=== PATIENT | female | born 1965 | race Caucasian/White ===

== ENCOUNTER 2025-03-24 01:45 | Day surgery (SDC) | payer OTHER, SELFPAY ==
[2025-03-10 11:48] VITALS: BMI 24.0
--- OUTSIDE RECORDS SUMMARY | 2025-03-24 01:48 | XMS_ITS | Clinical Summary ---
Author Organization [facility] Address [address] [place] [address] Care Team Providers Care Director Oracle Name Role Phone Robb Mcdonnell MD Primary Care Provider +1- [phone] Allergies No known active allergies Medications mesalamine EC 1.2 g Tab EC tablet Take 2 tablets (2.4 g total) by mouth daily. with food Active balsalazide (COLAZAL) 750 MG capsule Take 3 capsules (2,250 mg total) by mouth 3 (three) times daily. Active Vitamin D3 (CHOLECALCIFERO L) 50 mcg tablet Take 1 tablet (50 mcg total) by mouth daily. Active Vitamin E 200 UNITS capsule Take 1 tablet by mouth daily. Active biotin 300 MCG Tab Take 1 tablet (300 mcg total) by mouth daily. Active probiotic (FLORAJEN3) Cap capsule Take 1 capsule by mouth 3 (three) times daily with meals. Active Adapalene 0.3 % Gel apply TO THE affected AREA AT BEDTIME (TO THE face) 07/25/2022 Active hydrocortisone 2.5 % cream APPLY to the affected area(s) TWICE DAILY NEEDED 03/30/2022 Active doxycycline hyclate (VIBRA-TABS) 100 MG tablet Take 1 tablet (100 mg total) by mouth daily. with food. 07/12/2022 Active ustekinumab (STELARA) 45 MG/0.5ML injection Inject 0.5 mLs (45 mg total) into the skin Once every eight weeks. Active Social History Tobacco Use Types Packs/Day Years Used Date Smoking Tobacco: Former Cigarettes Q uit: 2002 Smokeless Tobacco: Never Tobacco Cessation:Counseling Given: Not Answered Alcohol Use Standard Drinks/Week Comments Yes 14 (1 standard drink = 0.6 oz pu re alcohol) 2/day Comments No Sex and Gender Information Value Date Recorded Sex Assigned at Not on file Legal Sex Female 7:13 PM CDT Gender Identity Not on file Sexual Orientation Not on file Last Filed Vital Signs Vital Sign Reading Time Taken Comments Blood Pressure 141/91 12/03/2023 2:17 PM CDT Pulse 82 12/03/2023 2:17 PM CDT Temperature 36.5 C (97.7 F) 12/03/2023 12:37 PM CDT Respiratory Rate 20 12/03/2023 2:00 PM CDT Oxygen Saturation 97% 12/03/2023 2:17 PM CDT Inhaled Oxygen Concentration - - Weight 79.4 kg (175 lb) 11/23/2023 12:39 PM CDT Height 180.3 cm (5' 11) 11/23/2023 12:39 PM CDT Body Mass Index 24.41 11/23/2023 12:39 PM CDT Plan of Treatment Health Maintenance Due Date Last Done Comments Cervical Cancer Screening Pap Smear (Age 30 to 64) Every 3 Years 1966 Annual Physical 1969 DTaP, Tdap and Td Vaccines (1 - Tdap) 1985 Hepatitis B Vaccines (1 of 3 - 19+ 3-dose series) 1985 Cervical Cancer Screening Pap with HPV Testing (Age 30 to 64) Every 5 Years 1996 Cervical Cancer Screening with HPV 1996 Pneumococcal Vaccine: 50+ Years (1 of 1 - PCV) 2016 PHQ-2 (Physician [place]) 07/02/2024 COVID-19 Vaccine (1 - season) 2025 Mammogram Screening 06/15/2025 06/15/2023 Colorectal Cancer Screening Colonoscopy (10 Years) 09/25/2032 09/25/2022, 09/25/2022, 09/21/2020, Additional history exists Zoster Vaccines Completed 09/13/2019, 05/18/2019 Hepatitis C Completed 09/25/2022 Meningococcal B Vaccine Aged Out No l onger eligible based on patient's age to complete this topic Meningococcal Vaccine Aged Out No jane erica eligible based on patient's age to complete this topic RSV Immunizations Under 20 Months Aged Out No longer eligible based on patient's age to complete this topic Procedures Procedure Name Priority Date/Time Associated Diagnosis Comments HC EIA QL HEPATITIS ABC B AG Routine 09/25/2022 8:21 AM CDT COLONOSCOPY Routine 09/25/2022 7:06 AM CDT from Last 3 Months or Most Recently Relevant to Health Maintenance Results * (ABNORMAL) HEPATITIS A,B,& C (09/25/2022 8:21 AM CDT) HEPATITIS B SURFACE AG NON-REACTIVE NON-REACT LIANNE 09/25/2022 9:[address] [facility] HEP B CORE TOTAL AB NON-REACTIVE NON-REACT LIANNE 09/25/2022 9:[address] [facility] HEP B SURFACE AB REACTIVE 09/25/2022 9:[address] [facility] HAV IGM REACTIVE(A) NON-REACT LIANNE 09/25/2022 11:[address] [facility] HEPATITIS C AB NON-REACTIVE NON-REACT LIANNE 09/25/2022 9:[address] [facility] 09/25/2022 8:21 AM CDT us Ady Mosley MD LABORATORY Final Resul t [facility] [address] [place] [address], [place] [phone] * Colonoscopy (09/25/2022 7:06 AM CDT) Narrative Ady Mosley MD - 09/25/2022 7:06 AM CDT Ady Mosley MD 09/25/2022 7:55 AM ADY MOSLEY MD, FACG, FACP COLONOSCOPY 09/25/2022 INDICATION: History of Ulcerative Colitis. POST-OP: One polyp removed. Moderately severe proctitis-biopsied. Surveillance biopsies done. SEDATION: ASA 2, MP 2. Moderate sedation given by Lu Quevedo RN &supervised by me. Versed 8 mg, Fentanyl 150 mcg IV given. Please see nurses notes for details. PREP: Good. With the patient in the left lateral decubitus position, the Olympus [id number] colonoscope was introduced into the rectum and advanced easily to the Terminal Ileum. Careful inspection of the mucosa was made upon insertion and withdrawal of the endoscope. FINDINGS: Terminal ileum: distal 5 cm normal. Ascending, Transverse, Descending, Sigmoid colon: normal. Cecum: 1.5 cm sessile polyp removed with snare polypectomy without bleed. (Jar 1) Rectum including retroflexion: 0-10 cm with moderately severe proctitis with erythema, edema, ulceration, friability, granularity and exudate. Biopsies Jar 4. Surveillance biopsies taken in 4Q fashion every 10 cm on withdrawal to evaluate for dysplasia. (Right colon Jar 2, Left colon Jar 3.) No masses, AVMs or diverticulosis seen. No complications, blood loss or implants. ASSESSMENT AND PLAN: History of Ulcerative Colitis: - Asymptomatic on Balsalazide 3 tab po BID - Surveillance colonoscopy 09/25/2022 with one colon polyp removed and moderately severe proctitis - Follow-up biopsies - While patient is asymptomatic there is still significant disease - Will need a biological; likely Stelara - Flex-Sig 6-8 months after start of biological - Will get Quaniferon Gold and Hepatitis screen today - With colon polyp and colitis will need repeat colonoscopy in two years Thank you for allowing me to care for your patient. She will follow-up with me in one month. Ady Mosley M.D. Cc: Dr. Mcdonnell Ady Mosley MD GI PROCEDURE ORDERABLES Fin al Result from Last 3 Months or Most Recently Relevant to Health Maintenance Insurance [facility] Care Teams Director Oracle Relationship Specialty Start Date End Date Robb Mcdonnell MD [address] [place] [address] [place] [address] PCP - General 01/26/17
--- OUTSIDE RECORDS SUMMARY | 2025-03-24 01:48 | XMS_ITS | Clinical Summary ---
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 Gender Identity Not on file Sexual Orientation Not on file Plan of Treatment Health Maintenance Due Date Last Done Comments DTAP/TDAP/TD VACCINES (1 - Tdap) 1985 HEPATITIS B VACCINES (1 of 3 - 19+ 3-dose series) 1985 HPV/Cotest (21-29) 10/30/1987 CERVICAL CANCER SCREENING 1996 HPV/Cotest (30-65) 1996 PAP SMEAR 1996 FIT-DNA Q 3 years 10/30/2011 FIT/FOBT Q 1 year 10/30/2011 Flex Sig/CT Colonography Q 5 years 10/30/2011 ZOSTER VACCINE (1 of 2) 2016 BREAST CANCER SCREENING 06/15/2024 06/15/20 23, 06/15/2023, 06/14/2022, Additional history exists INFLUENZA VACCINE (#1) 2025 COLORECTAL SCREENING 09/25/2032 09/25/2022, 09/26/19 Colorectal Cancer Screening 09/25/2032 Insurance [facility] INDIVIDUAL EXCHANGE [id number]
--- OUTSIDE RECORDS SUMMARY | 2025-03-24 01:48 | XMS_ITS | Encounter Summary ---
Author Organization [facility] Address [address] [place] [address] Care Team Providers Care Meat Soaker Name Role Phone Robb Mcdonnell MD Primary Care Provider +1- [phone] Encounter Details Date Type Department Care Team (Late st Contact Info) Description 02/15/2020 Prep for Procedure [facility] [place] [address] Ady Mosley MD [address] [address] Social History Tobacco Use Types Packs/Day Years Used Date Smoking Tobacco: Never Assessed Comments Unknown Sex and Gender Information Value Date Recorded Sex Assigned at Not on file Legal Sex Female 7:13 PM CDT Gender Identity Not on file Sexual Orientation Not on file documented as of this encounter Plan of Treatment Not on file documented as of this encounter Visit Diagnoses Diagnosis Colitis- Primary Other and unspecified noninfectious gastroenteritis and colitis documented in this encounter Additional Health Concerns Infection Onset Date Last Indicated Resolved Time COVID-19 Rule Out 09/18/2020 09/18/2020 09/19/2020 11:51 AM CDT documented as of this encounter Care Teams Meat Soaker Relationship Specialty Start Date End Date Robb Mcdonnell MD [address] [place] [address] [place] [id number] PCP - General 01/26/17 documented as of this encounter
--- OUTSIDE RECORDS SUMMARY | 2025-03-24 01:48 | XMS_ITS | Clinical Summary ---
Author Organization [facility] Address [address] [place] [address] Care Team Providers Care Real Estate Investment Analyst Name Role Phone Robb Mcdonnell MD Primary Care Provider Source Comments [facility],non-owned Affiliates and Associated Physician Practices is amultiple site organization consisting of ambulatory clinics and hospital sitesin [place], [place], [place] and [place]. This disclosure is being madepursuant to the Care Everywhere program and may not contain all information available regarding this patient. Last updated 18.[facility] Allergies No known active allergies Medications * Be aware that medications may not be up to date on this document. Alwaysverify current medications with the patient. PredniSONE 10 MG KIT Take 10 mg by mouth daily. Take 3 pills by mouth daily. 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 Gender Identity Not on file Sexual Orientation Not on file Last Filed Vital Signs Vital Sign Reading Time Taken Comments Blood Pressure 160/96 09/29/2009 9:06 AM CDT Pulse 76 09/29/2009 9:06 AM CDT Temperature 35.5 C (95.9 F) 09/29/2009 9:06 AM CDT Respiratory Rate - - Oxygen Saturation 99% 09/29/2009 9:06 AM CDT Inhaled Oxygen Concentration - - Weight 78 kg (172 lb) 03/08/2012 5:35 PM CDT Height 180.3 cm (5' 11) 03/08/2012 5:35 PM CDT Body Mass Index 23.99 03/08/2012 5:35 PM CDT Plan of Treatment Health Maintenance Due Date Last Done Comments COLOGUARD (AGES 45-75) - COL ON CA SCREENING 1966 COLON MONITORING 1966 COLONOSCOPY - COLON CA SCREENING 1966 CT COLONOGRAPHY - COLON CA SCREENING 1966 Colorectal Cancer Screening 1966 FIT - COLON CA SCREENING 1966 FLEX SIG - COLON CA SCREENING 1966 LIPID TESTING 1966 MAMMOGRAM 1966 HIV SCREENING 1981 HEPATITIS C SCREENING 10/24/1984 DTAP/TDAP/TD VACCINES (1 - Tdap) 1985 HEPATITIS B VACCINE (1 of 3 - 19+ 3-dose series) 1985 PNEUMOCOCCAL VACCINE 50+ (1 of 1 - PCV) 2016 ZOSTER VACCINE (1 of 2) 2016 DEPRESSION SCREENING 07/02/2024 COVID-19 VACCINE (1 - 2023-2 5 season) 2025 INFLUENZA VACCINE (#1) 2025 HIB VACCINE Aged Out No longer eligi ble based on patient's age to complete this topic HPV VACCINE Aged Out No longer eligi ble based on patient's age to complete this topic MENINGOCOCCAL (Group B) VACC INE SHARED DECISION-MAKING Aged Out No longer eligibl e based on patient's age to complete this topic MENINGOCOCCAL GROUPS A/C/Y/W VACCINE Aged Out No longer eligible b ased on patient's age to complete this topic Care Teams Real Estate Investment Analyst Relationship Specialty Start Date End Date Robb Mcdonnell MD [address] [place] [address] [place] [id number] PCP - General 03/08/12
--- OUTSIDE RECORDS SUMMARY | 2025-03-24 01:48 | XMS_ITS | Clinical Summary ---
Author Organization [facility] Address [address] [place] [address] Care Team Providers Care Production Planner Scheduler Name Role Phone Robb Mcdonnell MD Primary Care Provider +1 -[phone] Allergies No known active allergies Medications ustekinumab (STELARA) injection Inject 1 mL (90 mg total) under the skin every 8 (eight) weeks Pt unaware of dose Active balsalazide (COLAZAL) 750 mg capsule TAKE THREE CAPSULES BY MOUTH DAILY 02/10/2024 Active hydrocortisone 2.5 % cream APPLY TO THE AFFECTED AREA(S) ON CHEST AT BEDTIME NEEDED 02/04/2024 Active predniSONE (DELTASONE) 20 mg tablet Take 2 tablets (40 mg) by mouth daily 01/13/2024 Active ergocalciferol, vitamin D2, (VITAMIN D2 ORAL) Take by mouth Active calcium carbonate (OS-ILSA) 1,500 mg (600 mg elemental) tablet Take 1 tablet (1,500 mg total) by mouth Active B.animalis,bifi d,infantis,long (PROBIOTIC 4X ORAL) Take by mouth Active Active Problems No known active problems Surgical History Surgery Date Site/Laterality Comments MOHS SURGERY Medical History Medical History Date Comments Colitis Anxiety Skin cancer Family History Medical History Relation Name Comments Lung cancer Father Asthma Mother Breast cancer Neg Hx Ovarian cancer Neg Hx Relation Name Status Comments Father Mother Social History Tobacco Use Types Packs/Day Years Used Date Smoking Tobacco: Never Alcohol Use Standard Drinks/Week Comments Yes 0 (1 standard drink = 0.6 oz pur e alcohol) Comments No Sex and Gender Information Value Date Recorded Sex Assigned at Not on file Legal Sex Female 8:49 AM CDT Gender Identity Not on file Sexual Orientation Not on file Obstetrics History Para Term AB IAB SAB Ectopic Multiple Livin g Live Births 1 1 Date Outcome GA Total Labor Labor/2nd/3rd Weight Sex Type Anes PTL Negar A1 A5 Name Clin Term Comments 07/26 lifetime risk of breast cancer 11.8% Last Filed Vital Signs Vital Sign Reading Time Taken Comments Blood Pressure 132/72 03/21/2024 1:12 PM CDT Pulse - - Temperature - - Respiratory Rate - - Oxygen Saturation - - Inhaled Oxygen Concentration - - Weight 80.3 kg (177 lb) 03/21/2024 1:12 PM CDT Height 177.8 cm (5' 10) 03/21/2024 1:12 PM CDT Body Mass Index 25.4 03/21/2024 1:12 PM CDT Plan of Treatment Health Maintenance Due Date Last Done Comments Colon Cancer Screening-Colonoscopy 1966 Depression Screening 1966 Hepatitis C Screening 1966 DTaP/Tdap/Td Vaccine (1 - Tdap) 1977 Hepatitis B Screening 1984 Influenza Vaccine (#1) 2025 05/18/2019, 2017 Cervical Cancer Screening 03/21/20252023, 03/21/2024, 02/15/2021, Additional history exists Regular Well Visit/Exam 18-64 03/21/2025 03/21/2024, 03/19/2023, 02/17/2022, Additional history exists Breast Cancer Screening-Mammogram 07/18/2025 07/18/2024, 06/15/2023, 06/14/2022, Additional history exists Zoster Vaccine Completed 09/13/2019, 05/18/2019 Pneumococcal vaccine <65 Aged Out No longer eligible based on patient's age to complete this topic Procedures Procedure Name Priority Date/Time Associated Diagnosis Comments SCREENING MAMMOGRAM BILATERAL W FLAQUITO Schedule Routine, Read Routine (OP Routine) 07/18/2024 7:24 AM MINE SUPERVISOR Encounter for screening mammogram for malignant neoplasm of breast HIGH RISK HPV DNA DETECTION WITH GENOTYPING Routine 03/21/2024 1:00 PM CDT Well woman exam from Last 3 Months or Most Recently Relevant to Health Maintenance Results * Screening Mammogram Bilateral W [place] (07/18/2024 7:24 AM MINE SUPERVISOR) Anatomical Region Laterality Modality Breast Bilateral Mammography Impressions 07/18/2024 8:06 AM MINE SUPERVISOR BI-RADS ATLAS category (overall): 1 - Negative There is no mammographic evidence of malignancy. A 1 year screening mammogram is recommended. The patient has been or will be contacted. We recommend annual screening mammography for women at average risk of breast cancer beginning at age 40, based on guidelines of the [employer] [place] [employer] (ACR Practice Parameter for the Performance of Screening and Diagnostic Mammography) and [place] [employer]. For women with and elevated risk of breast cancer, please refer to the ACR Practice Parameter for specific screening recommendations. The patient will be entered into a reminder system with a target due date of 1 year for her next screening exam. Narrative 07/18/2024 8:06 AM MINE SUPERVISOR Screening Mammogram Bilateral W Flaquito: 07/18/24 The study was acquired using full field digital technology and interpreted from soft copy. 2D digital mammographic views, as well as 3D digital tomosynthesis were performed in the CC and MLO projections. This study was resulted using Computer-Aided Detection (CAD). CLINICAL: Encounter for screening mammogram for malignant neoplasm of breast. No relevant medical history has been documented for this patient. History of breast cancer in Neg Hx. COMPARISONS: 06/15/2023 Screening Mammogram Bilateral W [place] 06/14/2022 Screening Mammogram Bilateral W [place] 05/24/2021 Screening Mammogram Bilateral W [place] 05/19/2020 Screening Mammogram Bilateral W [place] 05/31/2018 Screening Mammogram Bilateral W [place]quito BREAST TISSUE: The breasts are heterogeneously dense, which may obscure small masses. FINDINGS: No suspicious masses, suspicious calcifications, or other suspicious findings are seen within either breast. There has been no suspicious change. Jimmy Lockwood MD IMG MAMMO PROCEDURES Fi nal Result * High Risk HPV DNA Detection with Genotyping (Molecular component) (03/21/2024 1:00 PM CDT) HPV HR 16 Not Detected Not Detected [facility] Comment:Testing performed by : [facility], [address] [place]., [address] HPV HR 18 Not Detected Not Detected [facility] Comment:Testing performed by : [facility], [address] [place]., [address] HPV HR Non 16/18 Not Detected Not Detected [facility] Comment: Interpretive Data Nucleic acid amplification for detection of high-risk Human Papilloma virus (HPV) is performed by the Radha Marv 6800 HPV test. This assay specifically detects HPV-16 and HPV-18 genotypes. The following HPV genotypes are detected as high-risk HPV: HPV-31, 33, 35, ,39, 45, 51, 52, 56, 58, 59, 66, and 68. This assay has been approved by the [place] Food and Drug Administration for detection of HPV in cervical specimens collected by a physician using an endocervical brush/spatula or cervical broom and placed in the ThinPrep Pap Test PreservCyt collection containers. The performance characteristics of this test have been verified by the [facility] Molecular Infectious Disease laboratory. Correlate with separately reported cytology results, as applicable. Interpretive data last revised 22 Testing performed by: [facility], [address] [place]., [address] Endocervical 03/21/2024 1:00 PM CDT 03/24/2024 11:44 AM CDT Narrative RE[facility] - 03/24/2024 9:42 PM CDT Clinical history and diagnosis->screen Number of vials->1 Testing type->Screening Last menstrual period (date if known)->PM Menstrual status->Postmenopausal Contraceptive use->None Jimmy Lockwood MD LAB BODY FLUIDS AND STO OLS ORDERABLES Final Result [facility] [id number] [facility] Department [place] [address] [facility] from Last 3 Months or Most Recently Relevant to Health Maintenance Insurance [facility] Care Teams Production Planner Scheduler Relationship Specialty Start Date End Date Robb Mcdonnell MD PCP - General 02/09/20
--- OUTSIDE RECORDS SUMMARY | 2025-03-24 01:48 | XMS_ITS | Encounter Summary ---
Author Organization [facility] Address [address] [place] [address] Care Team Providers Care Bartender Server Name Role Phone Robb Mcdonnell MD Primary Care Provider [phone] Encounter Details Date Type Department Care Team (Late st Contact Info) Description 09/18/2020 Prep for Procedure [facility] [place], [place] [id number] Ady Mosley MD [address] [id number] Social History Tobacco Use Types Packs/Day Years Used Date Smoking Tobacco: Never Smokeless Tobacco: Never Alcohol Use Standard Drinks/Week Comments Yes 14 (1 standard drink = 0.6 oz pu re alcohol) 2/day Comments Unknown Sex and Gender Information Value Date Recorded Sex Assigned at Not on file Legal Sex Female 7:13 PM CDT Gender Identity Not on file Sexual Orientation Not on file COVID-19 Exposure Response Date Recorded In the last month, have you been in contact with someone who was confirmed or suspected to have Coronavirus / COVID-19? No / Unsure 09/21/2020 7:24 AM CDT documented as of this encounter Plan of Treatment Not on file documented as of this encounter Results * PRE-SURGICAL/PRE-PROCEDURE CORONAVIRUS (COVID 19) (09/18/2020 9:00 AM CDT) CORONAVIRUS SARS COV 2 PCR (RESP) NOT DETECTED NOT DETECTED 09/19/2020 11:51 AM CDT [facility] Comment: A Not Detected (negative) test result for this test means that SARS-CoV-2 RNA was not present in the specimen above the limit of detection. A negative result does not rule out the possibility of COVID-19 and should not be used as the sole basis for treatment or patient management decisions. If COVID-19 is still suspected, based on exposure history together with other clinical findings, re-testing should be considered in consultation with public health authorities. Laboratory test results should always be considered in the context of clinical observations and epidemiological data in making a final diagnosis and patient management decisions. This patient specimen was tested using an FDA EUA pooling method. Negative results from pooled testing should not be treated as definitive. If the patient's clinical signs and symptoms are inconsistent with a negative result or results are necessary for patient management, then the patient should be considered for individual testing. In very rare cases, estimated at about 8 in 1,000 (0.8%) or less patient specimens with low viral loads may not be detected in sample pools due to the decreased sensitivity of pooled testing. Please review the Fact Sheets and FDA authorized labeling available for health care providers and patients using the following websites: https://www.[employer]/home/Covid-19/HCP/rc- fwbs-pkv4-vowe-sheet.html https://www.[employer]/home/Covid-19/Patients/ la-ylhe-xki4-fact-sheet.html This test has been authorized by the FDA under an Emergency Use Authorization (EUA) for use by authorized laboratories. Due to the current public health emergency, [facility] is receiving a high volume of samples from a wide variety of swabs and media for COVID-19 testing. In order to serve patients during this public health crisis, samples from appropriate clinical sources are being tested. Negative test results derived from specimens received in non-commercially manufactured viral collection and transport media, or in media and sample collection kits not yet authorized by FDA for COVID-19 testing should be cautiously evaluated and the patient potentially subjected to extra precautions such as additional clinical monitoring, including collection of an additional specimen. Methodology: Nucleic Acid Amplification Test (NAAT) includes RT-PCR or TMA Additional information about COVID-19 can be found at the [facility] website: www.[employer].Izzui/Covid19. Test performed at [facility] [address] [facility] [place] [address] Director: HEAVEN ALVAREZ DO,MPH FIRST TEST UNKNOWN 09/18/2020 11:24 AM CDT [facility] EMPLOYED IN HEALTHCARE NO 09/18/2020 11:24 AM CDT [facility] SYMPTOMATIC DEFINED BY CDC NO 09/18/2020 11:24 AM CDT [facility] DATE OF SYMPTOM ONSET NO 09/18/2020 12:36 PM CDT [facility] HOSPITALIZATION STATUS NO 09/18/2020 11:24 AM CDT [facility] PATIENT IN ICU NO 09/18/2020 11:24 AM CDT [facility] RESIDENT OF [facility] UNKNOWN 09/18/2020 11:24 AM CDT [facility] NOT 09/18/2020 11:24 AM CDT [facility] PATIENT'S RACE WHITE OR 09/18/2020 11:24 AM CDT [facility] ETHNICITY NONHISPANIC 09/18/2020 11:24 AM CDT [facility] SOURCE (QST) NASOPHARYNGEAL SWAB 09/18/2020 11:24 AM CDT [facility] NASOPHARYNGEAL SWAB / Unknown 09/18/2020 9:00 AM CDT us Ady Mosley MD MICROBIOLOGY - GENERAL DESI PAUL Final Result [facility] [address] [place] [address], [facility] [address] [facility] [place] [address], documented in this encounter Visit Diagnoses Diagnosis Colitis- Primary Other and unspecified noninfectious gastroenteritis and colitis documented in this encounter Additional Health Concerns Infection Onset Date Last Indicated Resolved Time COVID-19 Rule Out 09/18/2020 09/18/2020 09/19/2020 11:51 AM CDT documented as of this encounter Care Teams Bartender Server Relationship Specialty Start Date End Date Robb Mcdonnell MD [address] [facility] [address] [place] [address] [place] [id number] PCP - General 01/26/17 documented as of this encounter
[2025-03-24 06:21] VITALS: BP 147/86; PULSE 70; RESP 19; TEMP 36.2; O2SAT 100
[2025-03-24] MEDS: LACTATED RINGERS 1,000 ML 150 ML IV CONT (06:38)
--- NOTE | 2025-03-24 07:10 | WPDANESEPPF ---
Anes - Initial Pre Proc Eval Procedure: Operation Date: 03/24/25 07:30 Proposed Procedures p Diagnostic Colonoscopy - Jerson Leigh MD Date/Time: 03/24/25 07:10 Surgeon: Jerson Leigh MD Pre Op Diagnosis: Ulcerative (chronic) proctitis w/ rectal bleeding Patient Data Age: 59 Gender: F Height: 1.8 m Weight: 75.2 kg Last Vital Signs Temp 97.2 F L 03/24/25 06:21 Pulse 70 03/24/25 06:21 Resp 19 03/24/25 06:21 BP 147/86 H 03/24/25 06:21 Pulse Ox 100 03/24/25 06:21 O2 Del Method Room Air 03/24/25 06:21 Allergies Allergy/AdvReac Type Severity Reaction Status Date / Time No Known Allergies Allergy Verified 03/24/25 06:20 Home Medications ?Medication ?Instructions ?Recorded ?Confirmed ?Type etrasimod 2 mg tablet (Velsipity) 2 mg PO DAILY #30 tabs 12/25/23 03/24/25 Rx Patient hx anesthesia problems: none Family hx anesthesia problems: none Results Review: All pre-operative results and documents have been reviewed as part of the pre-operative evaluation. [facility] Past Medical History Medical History Skin cancer Social History Social History Smoking packs per day: 0.5 Smoking cigarettes per day: 10.0 Smoking status: Former smoker Tobacco type: cigarettes Alcohol intake: current Drinks per week: 7 Alcohol use details: maria l Substance use: never Substance use type: does not use Living arrangements: with family Spiritual care concerns: No Anes - Eval Final PreProcedure Day of Procedure 03/24/25 07:10 Patient weight: normal Lungs: normal air movement Airway: Mallampati scale class II Neurological: alert and oriented Last oral intake: >/= 8 hours ASA classification: I Emergent: no Anesthetic plan: proceed Anesthesia type and monitoring: general and standard monitoring Results Review: All pre-operative results and documents have been reviewed as part of the pre-operative evaluation. Active w gardening, occ wts, no cp or sob. Informed Consent: The patient's anesthetic plan and its attendant risks and benefits were discussed with the patient/family/POA. Questions were solicited and answers provided to the satisfaction of the patient/family/POA.
--- NOTE | 2025-03-24 07:34 | P.HP_ITS ---
History of Present Illness History of Present Illness Consent: Risks, benefits, and alternatives have been discussed and questions answered. Patient agrees to proceed with procedure. Chief complaint: Ulcerative (chronic) proctitis w/ rectal bleeding Narrative: Rafia Muñoz is a 59 year old female with left sided colitis diagnosed more than 20 years ago, she used to be on stelara- sigmoidoscopy 2023 still showed proctitis then switched to velsipity for about 9 months now and doing much better Review of Systems Review of Systems: All systems reviewed & are unremarkable except as noted in HPI and below PMFSH Past Medical History Medical History Skin cancer Social History Social History Smoking packs per day: 0.5 Smoking cigarettes per day: 10.0 Smoking status: Former smoker Tobacco type: cigarettes Alcohol intake: current Drinks per week: 7 Alcohol use details: maria l Substance use: never Substance use type: does not use Living arrangements: with family Spiritual care concerns: No Meds Home Medications and Allergies Home Medications ?Medication ?Instructions ?Recorded ?Confirmed ?Type etrasimod 2 mg tablet (Velsipity) 2 mg PO DAILY #30 ta bs 12/25/23 03/24/25 Rx Allergies Allergy/AdvReac Type Severity Reaction Status Date / Time No Known Allergies Allergy Verified 03/24/25 06:20 Vital Signs Vital Signs - 24 hr 03/24/25 06:21 Temperature 97.2 F L Pulse Rate 70 Respiratory Rate 19 Blood Pressure 147/86 H Pulse Oximetry 100 Oxygen Delivery Room Air Exam Const: General: comfortable and no acute distress HENMT: Face/Nose/Sinus: Normal nares present Eyes: General: appearance normal, both eyes and all related structures Neck: Neck: no JVD Resp: Auscultation: clear to auscultation bilaterally Cardio: Rate: regular rate Rhythm: regular rhythm GI: Inspection: non-distended GI Palp: Yes Soft to palpation Skin: General skin exam: normal color Neuro: Speech: normal speech Extrem: General: normal to inspection Psych: Mental Status: mental status grossly normal Assessment and Plan Assessment and plan (1) Ulcerative proctitis: Qualifiers: Digestive disease complication type: with rectal bleeding Qualified Code(s): K51.211 - Ulcerative (chronic) proctitis with rectal bleeding Code(s): K51.20 - Ulcerative (chronic) proctitis without complications Status: Acute Assessment and Plan: colonoscopy
--- NOTE | 2025-03-24 07:51 | S_PTH ---
PATIENT: Rafia Muñoz LOC: [facility]#:[id number] AGE/SX: 59/F ROOM: RE03/24/[address]: Jerson Leigh MD : 1965 BED: DIS: 03/24/2025 SPEC #: [id number] RECD: 03/24/25 08:57 STATUS: TEDDY WORTHY #: [id number] USMAN: 03/24/25 07:[address]: Jerson Leigh DEPT: [facility] Surgical RECD BY: Elsa Valdez ENTERED: 03/24/25 08:58 SP TYPE: Surgical OTHR DR: Robb McdonnellMD Tissues: A - Colon Biopsy B - Colon Biopsy C - Rectal Biopsy D - Colon Polypectomy Procedures: Hematoxylin and Eosin Stain Gross and Microscopic Level 4
[2025-03-24 07:54] VITALS: BP 115/69; PULSE 70; RESP 15; O2SAT 95
[2025-03-24 08:04] VITALS: BP 113/72; PULSE 65; RESP 17; O2SAT 98
[2025-03-24 08:14] VITALS: BP 128/77; PULSE 61; RESP 20; O2SAT 98
== END 2025-03-24 08:24 | disposition home or self-care (01) ==
PROVIDERS: PCP Family Medicine; Referring Provider Nurse Practitioner Family; Visit Provider Internal Medicine Gastroenterology
PROC: 0DJD8ZZ Inspection of Lower Intestinal Tract, Via Natural or Artificial Opening Endoscopic (ICD-10-PCS; CPT 45378; principal; 2025-03-24 07:30)
DX: K52.832 Lymphocytic colitis (principal); K63.5 Polyp of colon; K64.8 Other hemorrhoids; Z87.891 Personal history of nicotine dependence; Z85.828 Personal history of other malignant neoplasm of skin
CPT/HCPCS: 45385; 45380; 88305; J2003; J2704; J7120